=== PATIENT | female | born 1990 | race African-American/Black ===

== ENCOUNTER 2018-12-02 12:45 | Inpatient (IN) ==
[2018-12-02] MEDS ORDERED: LASIX IV ONE (14:17)
--- NOTE | 2018-12-02 14:29 | PROVIDER DOCUMENTATION ---
HPI-Respiratory General - General Chief Complaint: Edema Stated Complaint: FEET SWELLING / SOB Time Seen by Provider: 12/02/18 14:09 Source: patient Allergies/Adverse Reactions: Patient Allergies Allergy/AdvReac Type Severity Reaction Status Date / Time No Known Allergies Allergy Verified 10/31/16 07:43 Home Medications: Home Medication List Medication Instructions Recorded Confirmed Last Taken Type Levothyroxine Sodium [Synthroid] 325 mcg PO DAILY 10/03/13 10/31/16 02/15/16 History Lisinopril/Hydrochlorothiazide 2 each PO DAILY 09/13/14 10/31/16 02/15/16 History [Lisinopril-Hctz 20-25 mg Tab] Methocarbamol [Robaxin-750] 750 mg PO BID PRN #120 tablet 10/31/16 Unknown Rx Naproxen 500 mg PO BID PRN PRN #60 tablet 10/31/16 Unknown Rx - History of Present Illness-Resp Nature of Presenting Problem: HPI: Pt report to ER with SOB, lower leg swelling for the past 2 days. She states that before 2 days ago she was fine. she weights over >300lbs and appears to have no taken a shower in several days. she denies CP, N/V, diarrhea. Quality of Pain: reports: pressure Severity in ED: reports: mild Onset/Duration: reports: 2 days ago Timing: reports: still present Exposure: reports: unknown cause Cough Quality/Degree: reports: no cough Episode Frequency: chronic episodes Modifying Factors: improves with: exertion Associated Symptoms: reports: shortness of breath Similar Symptoms Previously?: Yes Recently seen or treated by another doctor?: Yes Review of Systems - Adult - REVIEW OF SYSTEMS - ADULT Constitutional: reports: no symptoms reported Eyes: reports: no symptoms reported Ears, Nose, Mouth & Throat: reports: no symptoms reported Cardiovascular: reports: edema Respiratory: reports: see HPI, dyspnea on exertion, shortness of breath Gastrointestinal: reports: no symptoms reported Genitourinary: reports: no symptoms reported Musculoskeletal: reports: no symptoms reported Integumentary: reports: no symptoms reported Neurological: reports: no symptoms reported Psychiatric: reports: no symptoms reported Endocrine: reports: no symptoms reported Hematologic/Lymphatic: reports: no symptoms reported Allergic/Immunologic: reports: no symptoms reported All Other Systems: Reviewed and Negative Past History - Adult - PAST MEDICAL HISTORY-ADULT Review of Records: reports: Old Records Reviewed, Nursing Assessment Review, Medications Reviewed, Social history reviewed & non-contributory. Major Childhood Illnesses: reports: denies history Cardiovascular: reports: HTN Respiratory: reports: denies history Gastrointestinal: reports: denies history Obstetrical/Gynecological: reports: denies history Genitourinary: reports: denies history Musculoskeletal: reports: chronic pain, intervertebral disc disease, neck/back i njury, other (lumbar spine infx) Neurological: reports: denies history Endocrine/Immune: reports: thyroid disorder Other Conditions: reports: other (spinal infection) - PRIOR SURGERIES/PROCEDURES Surgical/Procedure History: reports: BTL, , other (thyroidectomy) - PRIOR HOSPITALIZATIONS Prior Hospitalizations: reports: for other non-related - IMMUNIZATION STATUS Childhood Immunizations: See Nurse Assessment Flu Vaccine: See Nurse Assessment - FAMILY HISTORY Family History: HTN - SOCIAL HISTORY Smoking: denies Substance Use: none/never Alcohol Use Frequency: never Living Situation: family Physical Exam-General - PHYSICAL EXAM-ADULT Initial Vital Signs Reviewed: Yes - CONSTITUTIONAL General Appearance: mild distress, obese, lethargic - EYES Eyes: PERRL/EOMI, pink conjunctivae - HEAD, EARS, NOSE, MOUTH & THROAT HENMT: normocephalic/atraumatic, moist mucous membranes - NECK Neck: full range of motion - RESPIRATORY Respiratory: chest non-tender, lungs clear, normal breath sounds. negative: crackles, rales, rhonchi, stridor, wheezing - CARDIOVASCULAR Cardiovascular: normal peripheral pulses, regular rate, rhythm, no edema - GASTROINTESTINAL (ABDOMEN) Abdominal Exam: normal bowel sounds, non tender, soft. negative: guarding, rigid, rebound, tenderness - MUSCULOSKELETAL Back Exam: normal inspection Extremity: normal range of motion, non-tender, pedal edema, swelling. negative: no pedal edema Peripheral Pulses: radial (R): 2+, radial (L): 2+, dorsalis-pedis (R): 2+, dorsalis-pedis (L): 2+ - SKIN Integumentary: normal color, normal turgor - NEUROLOGIC Neurologic: grossly normal - PSYCHIATRIC Psych/Mental Status: normal thought process, oriented x 3, disheveled - HEART Score HEART Score: History: Slightly Suspicious HEART Score: ECG: Non-Specific Repolarization Disturbance/LBBB/PM HEART Score: Age: < or = 45 Years HEART Score: Risk Factors for Atherosclerotic Disease: 1 or 2 Risk Factors HEART Score: Troponin: < or = Normal Limit Total HEART Score:: 2 Progress - PLAN OF CARE/RESULTS Progress/Plan/Lab Results: Vital Signs - 8 hr 12/02/18 12:50 Temperature 98 F Pulse Rate 90 Respiratory Rate 20 Blood Pressure 159/101 O2 Sat by Pulse Oximetry 99 Laboratory Results - last 24 hr 12/02/18 12/02/18 12/02/18 14:26 14:26 14:26 WBC 5.50 RBC 3.22 L Hgb 5.6 L* Hct 21.5 L MCV 66.8 L MCH 17.4 L MCHC 26.0 L RDW Std Deviation 22.2 H Plt Count 207 MPV 10.5 H Immature Gran % (Auto) 0.7 H Neut % (Auto) 67.7 Lymph % (Auto) 22.4 [place] % (Auto) 5.5 Eos % (Auto) 2.2 Baso % (Auto) 1.5 H Immature Gran # (Auto) 0.04 Neut # (Auto) 3.73 Lymph # (Auto) 1.23 [place] # (Auto) 0.30 Eos # (Auto) 0.12 Baso # (Auto) 0.08 Sodium Potassium Chloride Carbon Dioxide Anion Gap BUN Creatinine Estimated GFR/1.73 m2 BUN/Creatinine Ratio Glucose Calculated Osmolality Calcium Total Bilirubin AST ALT Alkaline Phosphatase Creatine Kinase 918 H Troponin T < 0.010 Hua-C-Ubgqzhqwthz Pept Total Protein Albumin Globulin Albumin/Globulin Ratio 12/02/18 12/02/18 14:26 14:26 WBC RBC Hgb Hct MCV MCH MCHC RDW Std Deviation Plt Count MPV Immature Gran % (Auto) Neut % (Auto) Lymph % (Auto) [place] % (Auto) Eos % (Auto) Baso % (Auto) Immature Gran # (Auto) Neut # (Auto) Lymph # (Auto) [place] # (Auto) Eos # (Auto) Baso # (Auto) Sodium 140 Potassium 4.2 Chloride 100 Carbon Dioxide 27 Anion Gap 13 BUN 14 Creatinine 1.1 H Estimated GFR/1.73 m2 58 BUN/Creatinine Ratio 13 Glucose 85 Calculated Osmolality 279 Calcium 9.0 Total Bilirubin 0.20 AST 26 ALT 9 L Alkaline Phosphatase 46 Creatine Kinase Troponin T Fyq-O-Krdezwxlzyd Pept 58 Total Protein 7.5 Albumin 4.5 Globulin 3.0 Albumin/Globulin Ratio 2.0 Orders Category Date Time Status Admit - [facility] Routine AdmDCTranf 12/02/18 15:20 Active Activity - Up Ad Jia ORDERED Care 12/02/18 15:20 Active Call Admitting on Arrival AT ADMISSION Care 12/02/18 15:20 Active Neurological Check Q12H Care 12/02/18 15:20 Active Saline Loc NOW Care 12/02/18 14:17 Active Vital Signs Order Q 8-HR .ASSESS Care 12/02/18 15:20 Active Z-Document. for Tele Applied ORDERED Care 12/02/18 15:21 Active Heart Healthy Diet Diet 12/02/18 15:21 Active CHEST-2 VIEWS [RAD] Stat Exams 12/02/18 14:17 Completed BNP [PRO B-NATRIURETIC PEPTIDE] Stat Lab 12/02/18 14:26 Completed CBC WITH ELECTRONIC DIFF [HEME] Stat Lab 12/02/18 14:26 Results CK PROFILE [SP CHEM] Stat Lab 12/02/18 14:26 Results COMPREHENSIVE METABOLIC PANEL [CHEM] Stat Lab 12/02/18 14:26 Completed OCCULT BLOOD DIAGNOSTIC [STOOL] Stat Lab 12/02/18 15:10 Ordered PRBC [LRPC (RED CELLS)] [BBK] Stat Lab 12/02/18 15:00 Received TROPONIN T Stat Lab 12/02/18 14:26 Completed TYPE & SCREEN [BBK] Stat Lab 12/02/18 15:00 Received URINALYSIS W/POSS RFLX CULT [URINALYSIS] Stat Lab 12/02/18 14:17 Uncollected Furosemide [Lasix] Med 12/02/18 14:17 Discontinued 40 mg IV NOW ONE Oxygen Device Routine Oth 12/02/18 15:21 Active Telemetry [OM.EQ] Routine Oth 12/02/18 15:20 Active EKG [EKG] Stat Ther 12/02/18 14:19 Ordered Transfer/Admit Order [TRANSFER] Routine Transfer 12/02/18 15:21 Ordered A/P: Anemia hemoglobin of 5, type and cross, ordered 2 units of PRBC. EKG non specific t wave changes. will admit for IV diuresis and blood transfusions. Result Diagrams: 12/02/18 14:26 12/02/18 14:26 - XRAY 1 XRAY Study: Chest Impression: Abnormal ([facility] [address], [place] [id number] Department of Imaging Patient: WILLIAM CONNOLLY Date: 12/02/18#: [id number] : 1990ADM Status: REG ERAcct#: [id number] Age/Sex: 28/FRoom/Bed: Loc: P.ED Ordering Physician: Augusto Bird MD Family Physician: Collins Braxton MD Reason for Procedure: SOB Signed EXAM: CHEST-2 VIEWS - 12/02/2018 HISTORY: SOB TECHNIQUE: Chest two views COMPARISON: 11/09/2014 FINDINGS: Heart size appears enlarged and increased compared to prior. There is a nodular density at the left base which appears stable. Lungs otherwise appear clear. There is no pleural effusion or pneumothorax identified. IMPRESSION: Cardiomegaly with interval increase in heart size. No other acute changes. Electronically signed by Isaias Mackenzie 12/02/2018 3:16 PM 12/02/18 1516 Interpreting Physician: Isaias Mackenzie MD Dictated Date/Time: 12/02/18 1515 cc: Augusto Bird MD; Collins Braxton MD) Departure - Departure Date of Disposition Decision: 12/02/18 Time of Disposition Decision: 15:22 DIAGNOSIS: Edema, Anemia, SOB (shortness of breath) Disposition: ADMITTED INPATIENT 09 Certified Medical Emergency: Emergent Condition: Serious Additional Freetext Instructions: ED Follow Up Instructions: You have been treated by a care provider in the Emergency Department. These instructions are being provided to you so you can have an understanding of how to care for yourself upon discharge. Upon discharge from the Emergency Department, you are responsible for making arrangements for follow-up care by a physician of your choice. Take all prescribed medications as directed. Return to the Emergency Department immediately for any new or worsening symptoms. You may call the Physician Referral phone number at [phone] to obtain a list of Physicians who are taking new patients. Referrals and Follow-Ups: Collins Braxton MD [Primary Care Provider] - - Critical Care Note This patient required my direct & personal management of CC.: No Attestation - Physician/ MARLINE Attestation Patient care was provided by Advanced Practice Provider:: No The physician spent face to face time with patient:: Yes Advanced Practice Provider documentation review:: Supervising physician onsite and consulted in the evaluation and care of this patient. The physician did have a face to face encounter with the patient.
[2018-12-02 14:51] LABS: HEMATOCRIT 21.5 % (37.0-47.0); MCH 17.4 PG (27-31); MCV 66.8 FL (81-99); RBC 3.22 XMIL (4.2-5.4)
[2018-12-02 14:52] LABS: BASO# 0.08 X1000 (0.0-0.2); BASO% 1.5 % (0.0-0.8); EOS# 0.12 X1000 (0.0-0.7); EOS% 2.2 % (0.0-10.0); IMM GRAN# 0.04 X1000 (0.0-0.04); IMM GRAN% 0.7 % (0.0-0.5); LYMPH# 1.23 X1000 (1.2-3.4); LYMPH% 22.4 % (20.5-51.1); MONO% 5.5 % (1.7-9.3); MPV 10.5 FL (7.4-10.4); NEUT# 3.73 X1000 (1.4-6.5); NEUT% 67.7 % (42.2-75.2); PLT 207 X1000 (130-400); RDW 22.2 % (11.5-14.5)
[2018-12-02 14:54] LABS: HEMOGLOBIN 5.6 g/dL (12.0-16.0)
[2018-12-02 15:00] LABS: ALBUMIN 4.5 g/dL (3.5-5.0); CREATININE 1.1 mg/dL (0.5-0.9); POTASSIUM 4.2 mmol/L (3.5-5.1); TOTAL BILIRUBIN 0.2 mg/dL (0.20-1.00); TOTAL PROTEIN 7.5 g/dL (6.3-8.3)
--- NOTE | 2018-12-02 15:18 | Diag Imaging Result Doc PS360 ---
EXAM: CHEST-2 VIEWS - 12/02/2018 HISTORY: SOB TECHNIQUE: Chest two views COMPARISON: 11/09/2014 FINDINGS: Heart size appears enlarged and increased compared to prior. There is a nodular density at the left base which appears stable. Lungs otherwise appear clear. There is no pleural effusion or pneumothorax identified. IMPRESSION: Cardiomegaly with interval increase in heart size. No other acute changes. Electronically signed by Isaias Mackenzie 12/02/2018 3:16 PM
[2018-12-02 15:19] LABS: EOS 2 % (1-10); LYMPHS 16 % (21-51); MONO 6 % (1-9); NRBC 2 % (0-0); SEGS 76 % (42-75)
[2018-12-02] MEDS ORDERED: DUONEB (A & A) INH ONE (15:23)
[2018-12-02 15:24] LABS: CK INDEX 0.5 (0.0-2.5); CK-MB 4.93 ng/mL (0.0-5.0)
[2018-12-02 15:26] LABS: ANISOCYTOSIS 1+; HYPOCHROM 3+; MICROCYTOSIS 3+; POLYCHROM 1+
[2018-12-02 15:27] LABS: LARGE PLATELETS 1+
[2018-12-02 15:28] LABS: OVALOCYTES 3+; POIKILOCYTOSIS 3+; SCHISTOCYTES OCCASIONAL
[2018-12-02 15:31] LABS: OCCULT BLOOD 1 NEGATIVE (NEGATIVE)
--- NOTE | 2018-12-02 15:56 | EKG Report ---
Test Performed on : 12/02/2018 2:30:59 PM Test Reason : CP Blood Pressure : / mmHG Vent. Rate : 083 BPM Atrial Rate : 083 BPM P-R Int : 192 ms QRS Dur : 080 ms QT Int : 340 ms P-R-T Axes : 026 009 062 degrees QTc Int : 399 ms Undetermined rhythm Low voltage QRS Nonspecific T wave abnormality Abnormal ECG When compared with ECG of 15-FEB-2016 10:01, Current undetermined rhythm precludes rhythm comparison, needs review Unconfirmed Result
[2018-12-02 16:11] LABS: CLARITY CLEAR (CLEAR); COLOR YELLOW; URINE RBC <10 /HPF (<10); URINE SOURCE CATH
[2018-12-02 16:12] LABS: BILIRUBIN URINE NEGATIVE (NEGATIVE); BLOOD URINE NEGATIVE (NEGATIVE); GLUCOSE URINE NEGATIVE (NEGATIVE); KETONE URINE NEGATIVE (NEGATIVE); LEUKOCYTES URINE NEGATIVE (NEGATIVE); NITRITE URINE NEGATIVE (NEGATIVE); PH URINE 6.5; PROTEIN URINE TRACE mg/dL (NEGATIVE); UROBILINOGEN URINE NORMAL
[2018-12-02] MEDS ORDERED: NS 1,000 ML IV SCH (17:30)
--- NOTE | 2018-12-02 23:20 | HISTORY AND PHYSICAL ---
CHIEF COMPLAINT: Swelling of feet. HISTORY OF PRESENT ILLNESS: Patient is a very poor historian currently. She presented to the hospital initially stating that she has had lower extremity swelling for the past 2 days and, according to the ER, she notes that prior to 2 days ago she was fine. However, she tells me that she sees Dr. Braxton every 3 months and has not seen for several months, but at that time she saw him for swelling of lower extremities and he gave her medications that do not appear to be working so I am not sure what the actual reality is. Regardless, patient states that she sees him every 3 months, but has not had blood work for quite some time. This will need to be followed up on. ALLERGIES: No known drug allergies. MEDICATIONS: Synthroid, lisinopril/hydrochlorothiazide 20/25. PAST MEDICAL HISTORY: Hypertension, hypothyroidism. We have no known history of anemia. Does state that she has chronic pain, chronic neck and back pain. States that she has had a BTL, C- section in the past. FAMILY HISTORY: Noncontributory. SOCIAL HISTORY: Patient denies smoking, drinking. Denies illicit substance use. PHYSICAL EXAMINATION: VITAL SIGNS: Reviewed. Temperature 98 degrees, pulse 90, respiratory 20, BP 159/101 in the ER, currently improved. Saturating 99% on room air. GENERAL: Patient is awake, alert. She is in no respiratory distress although she is quite slow to respond to questions to the extent that it almost appeared as though she did not know her last name. When asked her if she were Ms. Ng, that took close to a minute to answer. HEENT: Normocephalic. NECK: Supple. CARDIOVASCULAR: Regular rate. No current murmurs. CHEST: Clear and nonlabored. No wheezing. ABDOMEN: Soft, nondistended. EXTREMITIES: Moves all extremities. NEUROLOGIC: No focal neurological changes. LABORATORIES: Hemoglobin/hematocrit low at 5.6 and 21, platelets 207,000, WBCs 5. CMP essentially normal. ASSESSMENT: 1. Anemia of undetermined origin. The patient is heme negative. 2. Hypertension. 3. Hypothyroidism. PLAN: We will type and cross, transfuse. We will recheck her hemoglobin and hematocrit in the morning. We will use Lasix as needed for her lower extremity edema which currently appears to be controlled and we will follow. cc: Morris Wilson MD
[2018-12-03] MEDS: TYLENOL PO PRN ×3 (00:32→14:44)
[2018-12-03 06:29] LABS: HEMATOCRIT 26.6 % (37.0-47.0); HEMOGLOBIN 7.4 g/dL (12.0-16.0); MCH 19.4 PG (27-31); MCHC 27.8 g/dL (33-37); MCV 69.8 FL (81-99); PLT 195 X1000 (130-400); RBC 3.81 XMIL (4.2-5.4); RDW 22.3 % (11.5-14.5); WBC 5.55 X1000 (4.8-10.8)
[2018-12-03 06:42] LABS: ALBUMIN 4.6 g/dL (3.5-5.0); CREATININE 1.1 mg/dL (0.5-0.9); POTASSIUM 3.9 mmol/L (3.5-5.1); TOTAL BILIRUBIN 0.5 mg/dL (0.20-1.00); TOTAL PROTEIN 7.7 g/dL (6.3-8.3)
[2018-12-03] MEDS ORDERED: ULTRAM PO ONE (11:12)
[2018-12-03 11:32] LABS: IRON SATURATION 37 %; TIBC 425 ug/dL; TOTAL IRON 158 ug/dL (49-151); UNBOUND IRON 267 ug/dL (112-346)
--- NOTE | 2018-12-03 12:06 | Diag Imaging Result Doc PS360 ---
US PELVIC NON-OB COMPLETE - 12/03/2018 INDICATION: anemia TECHNIQUE: The exam was very challenging due to the patient's large size and condition. Endovaginal exam could not be performed. COMPARISON: None FINDINGS: There is probably minimal nonspecific pelvic free fluid. The uterus and ovaries otherwise appear normal. The uterus measures 8.6 x 5.6 x 5.2 cm. Endometrial stripe thickness is 6 mm. The right ovary measures 2.9 x 2 x 1.6 cm. The left ovary measures 2.9 x 2 x 2.1 cm. IMPRESSION: No acute disease. Electronically signed by Praful Estrada 12/03/2018 12:03 PM
[2018-12-03] MEDS ORDERED: LASIX PO ONE (14:07)
[2018-12-03] MEDS ORDERED: FERRLECIT 125 MG in NS 100 ML IV ONE (15:00)
[2018-12-03 16:10] VITALS: BP 134/91
[2018-12-04] MEDS ORDERED: PRINIVIL PO SCH (09:00)
[2018-12-04] MEDS ORDERED: HYDROCHLOROTHIAZIDE PO SCH (09:00)
[2018-12-04] MEDS ORDERED: LEVOTHYROXINE SODIUM 325 MCG PO SCH (09:00)
== END 2018-12-03 18:15 | disposition home or self-care (01) | DRG 812 ==
LOC: P.ED 12:45 → SUATTDRO 17:39 → P.MEDSURG 17:39
PROVIDERS: ATTEND Internal Medicine
CPT/HCPCS: 36430; 71020; 71046; 76856; 80053; 81001; 82270; 82550; 82553; 82728; 83540; 83550; 83880; 84443; 84484; 85025; 85027; 86850; 86900; 86901; 86920; 93005; 94640; A9270; J1940; J2916; J7030; P9016